=== PATIENT | female | born 1965 | race Caucasian/White ===

== ENCOUNTER → 2022-05-22 | Outpatient (CLI) | payer OTHER ==
[~2022-05-22] MED LIST: TRIAMTERENE/HCTZ; WELLBUTRIN SR200 MG PO; ZOLOFT 100MG100 MG PO
== END ==
LOC: COL.RAD 12:42
DX: K76.0 Fatty (change of) liver, not elsewhere classified (principal); K57.30 Diverticulosis of large intestine without perforation or abscess without bleeding; K90.0 Celiac disease